=== PATIENT | female | born 1985 ===

== ENCOUNTER 2018-12-23 13:10 | Inpatient (IN) | payer MEDICAID ==
[~2018-12-23] VITALS: Ht 160 cm; Wt 83.2 kg
[2018-12-24 21:01] VITALS: BP 108/73; PULSE 91; TEMP 98
[2018-12-24] MEDS ORDERED: AMBIEN 5MG TABLE5 MG PO (21:07)
[2018-12-24] MEDS ORDERED: ZYRTEC5 MG PO (21:07)
--- NOTE | 2018-12-24 21:45 | NUR ---
Pt off EFM to sit on the birthing ball.
[2018-12-24 22:08] LABS: BASO % 0.3 % (0.0-2.0); EOS # 0.1 (0.0-0.7); EOS % 1.1 % (0-4.0); GRAN # 6.5 (1.4-6.5); GRAN % 69.6 % (42.2-75.2); HEMOGLOBIN 10.5 g/dl (12.5-16.0); LYMPH # 2.1 (1.2-3.4); LYMPH % 22.4 % (20.0-51.0); MEAN CELL VOLUME 85 fl (80.0-100.0); MEAN CORPUSCULAR HEMOGLOBIN 27 pg (27.0-31.0); MEAN CORPUSCULAR HGB CONC 32 g/dl (33.0-37.0); MEAN PLATELET VOLUME 11.1 fl (7.4-10.4); MONO # 0.6 (0.1-0.6); MONO % 6.1 % (1.7-9.3); PLATELET COUNT 310 K/mm3 (130-400); RED BLOOD COUNT 3.92 M/mm3 (4.10-5.30)
[2018-12-24 23:05] LABS: HEMATOCRIT 33.3 % (37.0-47.0)
--- NOTE | 2018-12-24 23:15 | NUR ---
Pt off EFM to ambulate in the hallway.
[2018-12-25] VITALS (37 sets, daily range): BP systolic 87–148; BP diastolic 50–98; PULSE 59–115; TEMP 97.9–98.2
--- NOTE | 2018-12-25 00:30 | NUR ---
BERNICE by this RN . Spoke with Dr. Vincent for an update on pt's status. Orders to augment labor with pitocin received. Information reviewed with pt and significant other at the bedside. Both verbalized an understanding, agree with the plan and state no questions or concerns at this time.
--- NOTE | 2018-12-25 08:41 | NUR ---
DR LOPEZ AT BEDSIDE. SVE 8/0 PITOSIN TURNED OFF WHILE DOES A C SECTION. PATIENT BREASTHS THROUGH EACH CONTRACTION.
--- NOTE | 2018-12-25 09:43 | NUR ---
0915 PATIENT FEELS URGE TO PUSH. SVE COMPLETE/+1 DR LOPEZ CALLED FOR DELIVERY. 0919 PATIENT PREPPED FOR DELIVERY AT THIS TIME. PUSH WITH CONTRACTIONS. BABY GIRL BORN AT THIS TIME. PATIENT TOLERATE WELL. CORD CLAMPED AND CUT BY DR LOPEZ. BABY TO MOMS CHEST. STRONG CRY NOTED. 0923 PLACENTA DELIVERED AT THIS TIME. PITOCIN STARTED AT 333 PER PROTOCOL. FUNDUS BOGGY, MASSAGED UNTIL FIRM. MODERATE AMOUNT BLEEDING NOTED. DENIES NEEDS.
[2018-12-25] MEDS ORDERED: MOTRIN 800800 MG/TAB PO (13:25)
[2018-12-26 07:30] VITALS: BP 101/71; PULSE 71; TEMP 97.7
--- NOTE | 2018-12-26 11:27 | NUR ---
Initial visit; Parents thanked Trucker for offering congratulations and God's blessings for the of their daughter. Trucker thanked parents for choosing [facility].
--- NOTE | 2018-12-26 12:10 | NUR ---
Reviewed discharge instructions with patient and spouse. Provided apt. Denies questions. 1253-Ambulatory off unit with and spouse.
== END 2018-12-26 12:53 | disposition home or self-care (01) | DRG 806 ==
LOC: OB 12-24 20:40 → LDR 12-24 20:40 → OB 12-25 11:49 → LDR 12-28 13:08
PROVIDERS: Obstetrics & Gynecology; ADMIT Obstetrics & Gynecology
PROC: 10907ZC Drainage of Amniotic Fluid, Therapeutic from Products of Conception, Via Natural or Artificial Opening (ICD-10-PCS; principal; 2018-12-24)
PROC: 10E0XZZ Delivery of Products of Conception, External Approach (ICD-10-PCS; 2018-12-25)
PROC: 0UQG7ZZ Repair Vagina, Via Natural or Artificial Opening (ICD-10-PCS; 2018-12-25)
DX: O62.1 Secondary uterine inertia (principal); O71.4 Obstetric high vaginal laceration alone; Z37.0 Single live birth; O72.1 Other immediate postpartum hemorrhage; O76 Abnormality in fetal heart rate and rhythm complicating labor and delivery; Z3A.39 39 weeks gestation of pregnancy; O26.893 Other specified pregnancy related conditions, third trimester; O69.81X0 Labor and delivery complicated by cord around neck, without compression, not applicable or unspecified; Z67.91 Unspecified blood type, Rh negative
CPT/HCPCS: J2210; J2590; J2791; J7120

== ENCOUNTER 2021-09-13 08:12 | Inpatient (IN) | payer BC, MEDICAID ==
[~2021-09-13] VITALS: Ht 162.6 cm; Wt 86.4 kg
[~2021-09-13 08:12] MED LIST: AMBIEN 5MG TABLE5 MG PO; MOTRIN 800800 MG/TAB PO; ZYRTEC5 MG PO
[2021-09-14] VITALS (27 sets, daily range): BP systolic 113–172; BP diastolic 60–87; PULSE 62–102; TEMP 98.2–98.4
[2021-09-14] MEDS ORDERED: PRENATAL TABLET PO (12:52)
[2021-09-14] MEDS ORDERED: GLUCOPHAGE XR750 MG PO (12:52)
[2021-09-14 13:24] LABS: BASO % 0.3 % (0.0-2.0); EOS % 0.5 % (0.0-4.0); GRAN # 5.7 K/mm3 (1.4-6.5); GRAN % 74.4 % (42.2-75.2); HEMOGLOBIN 10.4 g/dl (12.5-16.0); LYMPH # 1.5 K/mm3 (1.2-3.4); LYMPH % 19.6 % (20.0-51.0); MEAN CELL VOLUME 84 fl (80.0-100.0); MEAN CORPUSCULAR HEMOGLOBIN 27 pg (27-31); MEAN CORPUSCULAR HGB CONC 32 g/dl (33.0-37.0); MEAN PLATELET VOLUME 12.4 fl (7.4-10.4); MONO # 0.4 K/mm3 (0.1-0.6); MONO % 4.8 % (1.7-9.3); PLATELET COUNT 271 K/mm3 (130-400); RED BLOOD COUNT 3.86 M/mm3 (4.10-5.30); REDCELL DISTRIBUTION WIDTH-CV 13.9 % (11.5-14.5)
[2021-09-14 13:25] LABS: HEMATOCRIT 32.3 % (37.0-47.0)
--- NOTE | 2021-09-14 14:27 | NUR ---
1235 PATIENT HERE FOR INDUCTION OF LABOR, SURROGATE PATIENT. EFM ON FHT 130 BABY ACTIVE. NO CONTRACTIONS NOTED ON MONITOR OR FELT BY PATIENT. ASSESSMENT COMPLETED. CONSENTS SIGNED. ALL LEGAL PAPERWORK ON CHART AND COPY GIVEN TO NURSERY. DISCUSS WITH PATIENT WHAT HER DESIRES ARE FOR DELIVERY. IVF STARTED AT THIS TIME. 1300 PITOCIN STARTED AT THIS TIME PER ORDERS.
--- NOTE | 2021-09-14 15:51 | NUR ---
1410 DR LOPEZ HERE. SVE /-2. AROM WITH AMNIOHOOK. SMALL AMOUNT CLEAR FLUID NOTED. NO ODOR. NO CONTRACTIONS AT THIS TIME,. CONTINUE TO INCREASE PITOCIN PER PROTOCOL.
--- NOTE | 2021-09-14 15:53 | NUR ---
1500 CONTRACTIONS GETTING MORE INTENSE. FHT 130
--- NOTE | 2021-09-14 15:53 | NUR ---
1440 PATIENT STARTING TO FEEL CONTRACTIONS MORE.
--- NOTE | 2021-09-14 15:55 | NUR ---
1545 PATIENT STARTING TO FEEL PRESSURE. SVE /-1 . CARIABLES NOTED WITH CONTRACTIONS. DR LOPEZ CALLED AND UPDATED. ORDERS TO CALL WHEN NEEDED FOR DELIVERY.
--- NOTE | 2021-09-14 15:57 | NUR ---
1412 FHT DECREASED TO 60-70 FOR 1 1/2 MIN AND THEN INCREASED BACK TO BASELINE 130. PATIENT REPOSITIONED FROM LEFT SIDE TO RIGHT. DR LOPEZ REMAINS AT BEDSIDE.
[2021-09-14] MEDS ORDERED: MOTRIN 800800 MG/TAB PO (16:00)
--- NOTE | 2021-09-14 18:13 | NUR ---
1710 DR LOPEZ AT BEDSIDE. SVE /+1
--- NOTE | 2021-09-14 18:15 | NUR ---
1715 DR LOPEZ AT BEDSIDE. PATIENT WILL PUSH WITH CONTRACTIONS.
--- NOTE | 2021-09-14 18:27 | NUR ---
1731 BABY GIRL AT THIS TIME BY DR LOPEZ. CORD CLAMPED AND CUT, BABY TO NURSERY BY A [facility] NURSE PER PATIENT REQUEST, TO BIO PARENTS. 1733 PLACENTA DELIVERED AT THIS TIME AND PITOCIN STARTED AT 333/HR PER PROTOCOL. FUNDUS BOGGY WITH LARGE AMOUNT OF FREE FLOW NOTED. FUNDUS MASSAGED UNTIL FIRM. 1739 LARGE AMOUNT OF FREE FLOW NOTED AGAIN AT THIS TIME. FUNDUS MASSAGED UNTIL FIRM. METHERGINE 0.2 MG IM IN LEFT THIGH BY RISHABH HACKETT RN AT THIS TIME. DR LOPEZ AND THIS NURSE REMAINS AT BEDSIDE. 1745 ANOTHER LARGE AMOUNT OF FREE FLOW NOTED. FUNDUS MASSAGED FOR 2 LARGE CLOTS NOTED. CYTOTEC 800 MG RECTAL GIVEN BY DR LOPEZ AT THIS TIME. FUNUS FIRM. 1750 DR LOPEZ AND THIS NURSE AT BEDSIDE. FUNDUS FIRM BUT MODERATE FREE FLOW. HEMABATE GIVEN PER ORION KEENAN. VOIDS ON BEDPAN. CONTINUED TO MONITOR BLEEDING. VS WNL HEARTRATE 72. ALL PADS/TRASH DISGARDED BY STAFF. DR LOPEZ ESTIMATED EBL 1100. PERICARE DONE AND ICE PACK PLACED TO PERINEAM AT THIS TIME. 1800 FUNDUS REMAINS FIRM WITH MINIMAL BLEEDING.
--- NOTE | 2021-09-14 18:40 | NUR ---
181 REPORT GIVEN TO Rand CLEMENT RN
--- NOTE | 2021-09-14 18:45 | NUR ---
1844 LARGE AMOUNT OF VAG BLEEDING WITH SM CLOTS NOTED ON PAD AND ICE PACK. CHANGED AND WEIGHED PADS = 141 CC. C/O SOME UTERINE DISCOMFORT. 1899 MOTRIN AND TYLENOL GIVEN. PADS CHECKED. MOD AMOUNT VAG BLEEDING MIXED WITH URINE. PT STATES SHE PEES EVERYTIME SHE COUGHS. UP TO BR WITH ASSIST BUT UNABLE TO VOID. PERICARE DONE. 100CC CLOT PASSED IN TOILET. TO 208 PER W/C AND BRAYAN WELL. 1929 DR LEHMAN NOTIFIED OF PT VAG BLEEDING AND V.S. NO NEW ORDERS 1944 PAD CHANGED 3/4 PAD SATURATED. FF AT [facility]IL[facility]. NO FREE FLOW NOTED 2029 PAD CHECKED WITH SM- MOD AMT VAG BLEEDING NOTED. NO FREE FLOW NOTED. DR LEHMAN NOTIFIED OF LAB RESULTS AND NO NEW ORDERS GIVEN.
[2021-09-14 19:45] LABS: HEMATOCRIT 30.4 % (37.0-47.0); HEMOGLOBIN 9.6 g/dl (12.5-16.0)
--- NOTE | 2021-09-14 20:50 | NUR ---
2049 UP TO BR ON OWN AND VOIDED 100CC. SM VAG BLEEDING NOTED IN TOILET. 06/06 PAD SAT AND CHANGED. BRAYAN WELL. REGULAR DIET TAKEN
[2021-09-15 02:30] VITALS: BP 113/65; PULSE 75; TEMP 98.5
[2021-09-15 07:00] VITALS: BP 111/62; PULSE 71; TEMP 98.1
--- NOTE | 2021-09-15 09:06 | NUR ---
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 SW placed the court documents in the patient's chart. SW met with the patient to follow up. The patient states that she is doing well and has no concerns about returning home. She states that she has support from her . No additional needs at this time.
--- NOTE | 2021-09-15 09:13 | NUR ---
Initial visit; Patient thanked [employer] for offering God's Blessings for being the blessed and selfless person she is. [employer] wished her a wonderful "Resurrection Day."
== END 2021-09-15 11:55 | disposition home or self-care (01) | DRG 806 ==
LOC: LDR 09-14 08:12 → OB 09-14 12:18
PROVIDERS: ADMIT Obstetrics & Gynecology
PROC: 10E0XZZ Delivery of Products of Conception, External Approach (ICD-10-PCS; principal; 2021-09-14)
PROC: 3E033VJ Introduction of Other Hormone into Peripheral Vein, Percutaneous Approach (ICD-10-PCS; 2021-09-14)
PROC: 10907ZC Drainage of Amniotic Fluid, Therapeutic from Products of Conception, Via Natural or Artificial Opening (ICD-10-PCS; 2021-09-14)
DX: O36.5930 Maternal care for other known or suspected poor fetal growth, third trimester, not applicable or unspecified (principal); O72.1 Other immediate postpartum hemorrhage; Z37.0 Single live birth; O76 Abnormality in fetal heart rate and rhythm complicating labor and delivery; O64.0XX0 Obstructed labor due to incomplete rotation of fetal head, not applicable or unspecified; O26.893 Other specified pregnancy related conditions, third trimester; Z67.11 Type A blood, Rh negative; Z3A.38 38 weeks gestation of pregnancy; Z23 Encounter for immunization
CPT/HCPCS: J2210; J2590; J2791; J7120